=== PATIENT | male | born 1955 | race Caucasian/White ===

== ENCOUNTER 2016-07-03 15:34 | Emergency (ER) | payer OTHER ==
[~2016-07-03] VITALS: Ht 188 cm; Wt 113.4 kg
[~2016-07-03 15:34] MED LIST: NORCO 5-325 TA1 EACH PO
[2016-07-03] MEDS ORDERED: HYDROCODONE-AP1 EAC6 PO (16:46)
[2016-07-03 17:00] VITALS: BP 140/98
== END 2016-07-03 17:01 | disposition home or self-care (01) ==
LOC: ER 15:34
DX: G89.29 Other chronic pain (principal); M54.9 Dorsalgia, unspecified; I10 Essential (primary) hypertension; Z90.89 Acquired absence of other organs; Z88.0 Allergy status to penicillin

== ENCOUNTER → 2016-07-07 | Outpatient (CLI) | payer OTHER ==
[~2016-07-07] VITALS: Ht 188 cm; Wt 113.4 kg
[~2016-07-07] MED LIST changes: +COZAAR 50 MG TA50 M2 PO; +CYMBALTA60 MG PO; +FISH OIL 1,001000 M2 PO; +HYDROCODONE-AP1 EAC6 PO; +LOW DOSE ASPIRI81 M1 PO; +MOBIC15 MG PO; +PREDNISONE 20 M20 MG PO; +PROSCAR 5MG TABL5 MG PO; +SEROQUEL 50 MG50 MG PO; +TOPAMAX 100 MG100 MG PO; +TRAZODONE HCL100 MG PO; +VIIBRYD40 MG PO; +ZOCOR40 MG PO
--- NOTE | ~2016-07-07 | HPC ---
[facility] [place] [address] [address] [place] [address] PAIN MANAGEMENT CONSULTATION Name: KAYLIN CORREA Room #: REG KIERAN Eve.#: [id number] Admission: 07/07/16 Attend Phys: Mark Arambula DO Discharge: Date of : 57 Report #: [id number] THIS REPORT FOR: //name// CC: KAREN Brian MD DATE OF SERVICE: 07/07/2016 REFERRING PHYSICIAN: Elpidio Brian M.D. CHIEF COMPLAINT: Right shoulder pain, low back pain and left lower extremity pain with paresthesias. HISTORY OF PRESENT ILLNESS: As you know, the patient is a 60-year-old male with longstanding history of low back pain, left lower extremity pain with paresthesias and right shoulder pain. The patient has been treated for right shoulder pain through his orthopedic surgeon. Apparently, he has a partial thickness tear of the undersurface of the posterior supraspinatus tendon. This has been treated with conservative therapy. The patient continues to experience pain in this area. He also complains of chronic low back pain. He has been fused from L4 through S1 in multiple surgeries. Most recent fusion was in 2012. The patient indicates his pain has been present for that time. He is apparently sought treatment through various physicians as he is well aware of the majority of pain services in our area. He states he has been taking chronic opioids for very long period of time. He states that he recently underwent an MRI at [facility], though this is not available to us. He is reporting low back pain, left lower extremity weakness and numbness and tingling. He indicates pain is constant, describes pain as burning, shooting, aching, gnawing, sharp, stabbing and tender. Places the current pain score 7/10, daily average at 7/10, worst the pain has been is 8/10. The patient states pain is exacerbated with increasing stress, not moving, cold temperatures, improves with core strengthening, walking, warm weather and opioid management. The patient has been seen by multiple pain services, has received treatments of epidural injections and other options for therapy. The patient indicates that these type of procedures have been ineffective. He has been referred to our service to discuss options for treatment. PAST MEDICAL HISTORY: 1. Hypertension. 2. Emotional problems. 3. Dyslipidemia. 4. Benign prostatic hypertrophy. 5. Chronic pain syndrome. [address] [address] PAIN MANAGEMENT CONSULTATION Name: KAYLIN CORREA Room #: REG CLChrissy Irby#: [id number] Admission: 07/07/16 Attend Phys: Mark Arambula DO Discharge: Date of : 57 Report #: [id number] PAST SURGICAL HISTORY: Low back surgery times 4 with full fusion of L4 through S1. SOCIAL HISTORY: The patient denies current tobacco, alcohol, IV or illicit drug use. He is retired. He retired nearly 2 years ago. He is receiving disability income. He is not in litigation in regards to his pain is accompanied by his who is providing a supplemental information during today's evaluation. REVIEW OF SYSTEMS: Positive for weight gain, fatigue, weakness, frequent and recurrent headaches, wearing corrective eyewear, cataracts, shortness of breath, chest pain, asthma, wheezing, lightheadedness and dizziness, memory loss with confusion, nervousness, depression, insomnia, right shoulder pain, low back pain and left lower extremity pain with weakness. All other review of systems negative per 12-point review of systems other than those listed in history of present illness. Pain impact score 50/70 indicating severe interference of daily activities secondary to pain. ALLERGIES: PENICILLIN. CURRENT MEDICATIONS: [place]-3 fish oil 1 tab per day, aspirin 81 mg per day, hydrocodone 5/325 one tab every 6 hours p.r.n. for pain, Seroquel 50 mg once a day, prednisone 25 mg once a day, losartan 50 mg once a day, Viibryd 40 mg once a day, duloxetine 60 mg once a day, trazodone 100 mg p.o. at bedtime, simvastatin 40 mg per day, meloxicam 15 mg per day, topiramate 100 mg per day and finasteride 5 mg per day. IMAGING DATA: MRI lumbar spine obtained on 07/06/2012 shows moderate diffuse 7 mm broad-based disk bulge at L3-L4, grade 1 anterolisthesis at this level, moderate central canal and moderate foraminal stenosis and fusion noted at L4 through S1. MRI of the right shoulder obtained on 02/05/2014 shows extensive labral tear involving the superior, anterior and inferior labrum and there is a partial thickness tear of the posterior supraspinatus tendon. PHYSICAL EXAMINATION: VITAL SIGNS: Blood pressure 146/101, pulse is 85 and respiratory rate 20 and unlabored. The patient is 97% on room air, height 6 feet 2 inches tall, weight 250 pounds and BMI calculated 32.1. GENERAL: Well-developed, well-nourished, well-hydrated, exogenously obese 60-year-old male. He appears his stated age. He is placing pain score 7/10. HEENT: Normocephalic and atraumatic. Pupils equal, round and reactive to light. Extraocular muscles are intact. Sclerae nonicteric without injection. NEUROLOGICAL: Cranial nerves 2 through 12 grossly intact. Speech is fluent. [facility] [address] [place] [address] PAIN MANAGEMENT CONSULTATION Name: KAYLIN CORREA Room #: REG KIERAN Mahamed#: [id number] Admission: 07/07/16 Attend Phys: Mark Arambula DO Discharge: Date of : 57 Report #: [id number] The patient deemed a fair historian. LUNGS: Clear. No wheeze, rhonchi or rales. CARDIOVASCULAR: Regular. No appreciable gallop or rub. ABDOMEN: Soft, obese, nontender and nondistended. EXTREMITIES: Show no clubbing, no cyanosis and no edema. MUSCULOSKELETAL: There is pain elicited with palpation of the right shoulder when compared to left. Active and passive range of motion of right shoulder intensifies pain. Apprehension test, positive right and negative left. There is palpatory tenderness over the paraspinal musculature of the lower lumbar spine. Multiple surgical incisions appear well healed. No spinous process tenderness. Seated straight leg raising positive on the left. Supine straight leg raising positive on the left. Jimbo's test is negative. Modified Gaenslen's is met with severe restriction of motion. Pain is generated. Ankle clonus negative. Babinski is negative. Muscle bulk and tone equal and symmetrical in the lower extremities. Deep tendinous reflexes are symmetrical at patella and reduced on the left with Achilles versus right. ASSESSMENT: 1. Chronic lumbar radiculopathy. 2. Post-laminectomy syndrome. 3. Failed lumbar spine surgery. 4. Displacement of lumbar intervertebral disk with radicular symptoms. 5. Lumbar degeneration. 6. Chronic intractable pain. PLAN: 1. The patient has been referred to our service for evaluation to provide suggestions for treatment options. The patient apparently has been receiving opioids from his orthopedic spine surgeon, but this has apparently discontinued. The patient and I discussed at length that long-term opioid therapy in his case would not be recommended. As you are aware, [facility] is making changes in the guidelines for chronic opioid therapy and the indication is that ultimately these medications will be discontinued for chronic pain suffers. We discussed with the patient the options for treatment that he has available at this time through our services. 2. The patient and I discussed the treatment options for lumbar radicular pain and failed lumbar spine surgery would include physical therapy, stretching exercises, core strengthening for which the patient must be actively involved on a daily basis. We discussed alteration in his neuropathic pain medication. Currently, he is on duloxetine. We would increase this medication. We also discussed multiple other medications, each of which the patient states he has either been on failed from some reason or another. When mentioned gabapentin, he said he had side effects and felt like he was spaced out. When discussing Lyrica, the patient stated he had weight gain. When discussing Topamax, he indicated he could not go higher than his current doses as this would potentially lead to dysphoric effects. He indicates tricyclic antidepressants [address] [address] PAIN MANAGEMENT CONSULTATION Name: KAYLIN CORREA Room #: REG KIERAN Irby#: [id number] Admission: 07/07/16 Attend Phys: Mark Arambula DO Discharge: Date of : 57 Report #: [id number] had been tried. He did indicate that he had been on virtually every neuropathic pain medication we suggested in either failed for one reason or another. We also discussed the possibility of having the patient trial a spinal cord stimulator. We at [facility] do trial lead implantation, but we do not move towards permanent. Permanent implantations are done by other physicians. We did discuss this with the patient today, though he is not interested at all in this device. In fact, he indicated that he had been presented this multiple times in the past and refused due to his concerns of "implementation complications." The patient was given each of these options today. He chose not to move forward with any of the proposed options for therapy. 3. The patient and his were quite adamant that we discussed initiation of medications for chronic pain issues including Hysingla for which they were using name brand terminology. The patient and I did discuss that we would not be involved in his opioid management as indicated above with the new CDC guideline changes. We are not recommending initiating any patient on new opioid therapy as these will ultimately have to be discontinued. There is no reason to initiate a therapy that will only have a transient timeframe of use. We have advised the patient today that if he wishes to start these medications, he could talk to his primary care physician about starting Hysingla or he can be referred to a pain services who do not offer interventional treatments and discuss his ongoing desire for opioid therapy with their services. He was given the names of 2 different physicians in the area that do provide strictly opioid management, though I did indicate to the patient today these will likely be discontinued very soon and he will then be having to seek more aggressive treatment options including possible fusion to complete the fusion of the lumbar region or possibly looking towards interventional treatments we have offered today. 4. We have provided the patient with information about the spinal cord stimulator to complete the discussion of today's options for treatment through [facility]. The patient can consider this option and if he wishes to move forward with the trial, he can contact our offices and be scheduled for the trial and then referred out for permanent implantation. 5. We will attempt to obtain a recent MRI that was requested by Lorna Trimble, the referring doctor that sent the patient for imaging on 03/03/2016. We will review these findings and contact the patient to have them contact us tomorrow, 07/08/2016. At that time, we can discuss the findings and determine if our treatments proposed above would be appropriate. 6. We wish to thank Dr. Miller and Dr. Espino for the referral this patient to our clinic. We have offered him the appropriate treatments for his chronic back pain issues. We will await the patient contact if he wishes to move forward with any of our proposed treatments. Again, we wish to thank you for the opportunity to see him in consultation. By: [phone] Mark Arambula DO /nt
[2016-07-07 13:45] VITALS: BP 146/101
== END ==
LOC: PAIN 07:08
DX: G89.4 Chronic pain syndrome (principal); I10 Essential (primary) hypertension; E78.5 Hyperlipidemia, unspecified; N40.0 Benign prostatic hyperplasia without lower urinary tract symptoms; J45.909 Unspecified asthma, uncomplicated; M96.1 Postlaminectomy syndrome, not elsewhere classified; M51.16 Intervertebral disc disorders with radiculopathy, lumbar region

== ENCOUNTER 2018-08-31 16:07 | Emergency (ER) | payer OTHER ==
[~2018-08-31] VITALS: Ht 188 cm; Wt 123.4 kg
[2018-08-31] MEDS ORDERED: VIIBRYD40 MG PO (16:55)
[2018-08-31] MEDS ORDERED: PERCOCET PO (18:01)
[2018-08-31 18:15] VITALS: BP 165/110
== END 2018-08-31 18:16 | disposition home or self-care (01) ==
LOC: ER 16:07
DX: G89.29 Other chronic pain (principal); M54.5 Low back pain; Z88.0 Allergy status to penicillin; Z79.899 Other long term (current) drug therapy